=== PATIENT | male | born 1980 | race Caucasian/White ===

== ENCOUNTER 2017-09-22 20:30 | Emergency (ER) | payer BC, MEDICAID | END 2017-09-23 01:00 | disposition home or self-care (01) | LOC: FTE 20:30 | DX: S20.20XA Contusion of thorax, unspecified, initial encounter (principal); R51 Headache; R07.9 Chest pain, unspecified; V49.40XA Driver injured in collision with unspecified motor vehicles in traffic accident, initial encounter | CPT/HCPCS: 70450; 71046; 71120; 99284-25 ==